=== PATIENT | female | born 1965 | race Caucasian/White ===

== ENCOUNTER 2022-04-08 08:23 | Emergency (ER) | payer OTHER, SELFPAY ==
--- NOTE | 2022-04-08 08:24 | ED.URI ---
HPI - URI/Sore Throat General Chief Complaint: Upper Respiratory Infection Stated Complaint: uri Time Seen by Provider: 04/08/22 08:24 Source: patient Mode of arrival: ambulatory Limitations: no limitations History of Present Illness HPI Narrative: Ms. Ledbetter is a 56-year-old female patient presenting to the clinic today with complaints of possible upper respiratory infection. She reports cough, congestion, sinus pressure, and green nasal drainage. She reports that the symptoms have been going on for 9 to 10 days. She has tried [id number] medicines without relief Related Data Home Medications Medication Instructions Recorded Confirmed bupropion HCl 150 mg 24 hr tablet, mg PO 04/08/22 extended release clobetasol 0.05 % topical ointment topical 04/08/22 conjugated estrogens 0.625 mg mg 04/08/22 tablet (Premarin) pimecrolimus 1 % topical cream applic topical 04/08/22 vilazodone 20 mg tablet (Viibryd) mg 04/08/22 Allergies Allergy/AdvReac Type Severity Reaction Status Date / Time No Known Allergies Allergy Verified 04/08/22 08:47 Review of Systems Review of Systems: Pertinent positives per HPI. Patient denies any fever, chills, rash, visual changes, dizziness, sore throat, shortness of breath, chest pain, palpitations, nausea, vomiting, diarrhea, constipation, abdominal pain, or any urinary issues. PMFSH Comments At the time of my signature, I reviewed and agree with the nursing past medical, surgical, social, and family history. There is no relevant family history pertinent to the patient complaint. Exam Narrative: General: Well-developed, well nourished, in no apparent distress Head: Normocephalic, atraumatic Eyes: Pupils equally round and reactive to light bilaterally, EOM intact, sclera and conjunctive clear, no discharge, lids normal Ears: TMs intact and clear, ear canals ceruminous, no drainage, grossly hearing normal. Nose: Nares patent, green discharge, severe inflammation, sinus tenderness over the maxillary and frontal sinuses Mouth: Oropharynx without lesions or masses, good dentition, MMM. Postnasal drip Neck: Supple, trachea midline, no enlargement of anterior or posterior cervical nodes, no thyroid masses or goiter palpable. Cardio: Regular rate and rhythm, s1 and s2 normal, no murmur appreciated. Resp: Clear to auscultation bilaterally anteriorly and posteriorly, no rhonchi, rales, wheezing or rubs Course Course Emergency Course: Portions of this record may have been created with voice recognition software. Level of Care: Express Care Visit Vital Signs Vital signs: Vital signs reviewed MDM - URI/Sore Throat MDM Narrative Medical decision making narrative: At the time of visit patient is resting comfortably on the exam table. Patient has 9 to 10 days of URI/sinus symptoms. Prescription was sent for prednisone and Augmentin. Supportive measures were discussed with the patient she voiced understanding of discharge instructions and agrees to the treatment plan. Differential Diagnosis Differential diagnosis: Likely upper respiratory infection, otitis media, sinusitis, viral infection, bronchitis, influenza and pharyngitis Discharge Plan Discharge Clinical Impression: Rhinosinusitis Patient Disposition: Home, Self-Care Condition: Stable Instructions: Antibiotic Form, Rhinosinusitis (ED) Additional Instructions: Take prescription medications only as prescribed-Augmentin and prednisone as prescribed Increase fluids and stay well hydrated Tylenol/motrin for pain/fever Flonase and OTC antihistamines as directed Vicks vapor rub to open sinuses Sinus rinses for congestion Cepacol spray, cough drops, throat lozenges, warm tea with honey/lemon, gargle salt water to soothe throat BRAT diet for diarrhea Clear liquids x 24 hours then advance as tolerated for nausea/vomiting May return to the clinic if symptoms worsen Go to the ED if you develop
[2022-04-08 08:37] VITALS: BP 141/77; PULSE 100; RESP 16; TEMP 37.3; O2SAT 96
== END 2022-04-08 08:52 | disposition home or self-care (01) ==
PROVIDERS: Emergency Provider Nurse Practitioner Family
DX: J32.9 Chronic sinusitis, unspecified (principal)
CPT/HCPCS: 99203; G0463